=== PATIENT | female | born 1965 | race Caucasian/White ===

== ENCOUNTER 2019-12-16 12:48 | Outpatient (CLI) | payer OTHER, SELFPAY ==
[2019-12-16 13:12] LABS: Hematocrit 40.5 % (37.0-47.0); Hemoglobin 12.5 g/dL (12.0-15.0); Mean Corpuscular HGB Conc 30.9 g/dl (32-36); Mean Corpuscular Hemoglobin 26.7 pg (26-34); Mean Corpuscular Volume 86.5 fl (80-100); Mean Platelet Volume 10.2 fl (7.4-10.4); Platelet Count Result 360 k/mm3 (150-375); Red Blood Count 4.68 M/mm3 (4.2-5.4); Red Cell Distribution Width 15.2 % (11.5-14.5); White Blood Count 6.2 K/mm3 (4.5-10.0)
== END 2019-12-16 12:49 | disposition home or self-care (01) ==
LOC: ANHSURGERY 12:53
PROVIDERS: PCP Internal Medicine; Visit Provider Student in an Organized Health Care Education/Training Program
DX: N93.9 Abnormal uterine and vaginal bleeding, unspecified (principal)
CPT/HCPCS: 36415; 85027; 86850; 86900; 86901

== ENCOUNTER 2019-12-24 00:06 | Day surgery (SDC) | payer OTHER, SELFPAY ==
[2019-12-09 15:44] VITALS: BMI 33.2
[2019-12-24] VITALS (15 sets, daily range): BP systolic 111–151; BP diastolic 67–86; PULSE 54–81; RESP 10–16; TEMP 36–36.4; O2SAT 92–100
--- NOTE | 2019-12-24 07:43 | PM.IMHP ---
H&P: HPI History of Present Illness Chief complaint: Abnormal Uterine Bleeding/ Enlarged Uterus Narrative: Kylie Arreaga is a 54 year old female who presents for robotic assisted total laparoscopic hysterectomy with bilateral salpingo-oophorectomy for abnormal uterine bleeding. Pt initially presented to the office with complaints of abnormal uterine bleeding. She states she has dealt with AUB since 2010 and has undergone 3 D&Cs. Pelvic US showed a thickened endometrium. Endometrial biopsy was performed and was negative for malignancy or hyperplasia. Pt desires definitive managment via hysterectomy. Review of Systems Cardiovascular: Cardiovascular: Denies chest pain, Denies leg edema, Denies palpitations, Denies dyspnea and Denies dyspnea on exertion Respiratory: Respiratory: Denies cough, Denies dyspnea and Denies dyspnea on exertion Gastrointestinal: Gastrointestinal: Denies abdominal pain, Denies constipation, Denies diarrhea, Denies nausea and Denies vomiting Genitourinary: Genitourinary: Reports abnormal menses, Reports abnormal vaginal bleeding, Denies hematuria, Denies urinary frequency, Reports menorrhagia, Denies dysuria, Denies pelvic pain, Denies urinary incontinence and Denies vaginal discharge Neurologic: Reports system reviewed and no additional complaints, except as documented Psychiatric: Psychiatric: Reports no additional psychiatric complaints Endocrine: Endocrine: Denies palpitations PMFSH Past Medical History Medical History (Updated 12/24/19 @ 07:49 by Juan Stewart MD) Anxiety GERD (gastroesophageal reflux disease) Hyperlipidemia Hypertension Social History Social History (Updated 10/22/19 @ 07:48 by Chio Matthews MD) Smoking status: Never smoker Alcohol intake: current Drinks per week: 2 Substance use: never Substance use type: does not use Additional occupation/education comments: [employer] Gender identity (if verbalized by the patient): Female Meds Home Medications and Allergies Home Medications Medication Instructions Recorded Confirmed Type alprazolam 0.25 mg PO Q4-6H PRN 12/09/19 12/09/19 History cetirizine 10 mg PO DAILY 12/09/19 12/09/19 History cholecalciferol (vitamin D3) 10 mcg PO DAILY 12/09/19 12/09/19 History [Vitamin D3] escitalopram oxalate 10 mg PO DAILY 12/09/19 12/09/19 History irbesartan 150 mg PO DAILY 12/09/19 12/09/19 History metoprolol succinate 25 mg PO DAILY 12/09/19 12/09/19 History vitamin E 600 unit PO DAILY 12/09/19 12/09/19 History zolpidem [Ambien] 5 mg PO HS PRN 12/09/19 12/09/19 History Allergies Allergy/AdvReac Type Severity Reaction Status Date / Time erythromycin base Allergy Intermediate HIVES Verified 12/09/19 15:44 Sulfa (Sulfonamide Allergy Intermediate HIVES Verified 12/09/19 15:44 Antibiotics) Exam Const: General: no acute distress Eyes: EOM: EOMs intact bilaterally Neck: Neck: supple Thyroid: thyroid normal Chest: Breast/axilla inspection: normal inspection of the breasts Breast/axilla palpation: normal palpation of the breasts, normal palpation of the axillae and no axillary lymphadenopathy Resp: Effort & Inspection: normal respiratory effort Auscultation: clear to auscultation bilaterally Cardio: Rate: regular rate Rhythm: regular rhythm GI: Inspection: non-distended GI Palp: Yes Soft to palpation, No Tenderness to palpation present (GI) and No Guarding due to palpation present (GI) Auscultation: normal bowel sounds : General: No bladder normal to palpation External Female Exam: normal external appearance Speculum Exam - Vagina: normal vaginal discharge and No vaginal bleeding Speculum Exam - Cervix: nontender Bimanual exam- vagina & uterus: normal bimanual exam, uterine size normal, No bladder normal to palpation, uterine mobility normal, No Cervical tenderness present and non-tender Bimanual Exam- Adnexa, other: normal adnexae, adnexae mobile and no masses OB/external & speculum: No
[2019-12-24] MEDS: LACTATED RINGERS 1,000 ML 30 ML IV CONT ×2 (10:15→13:52)
--- NOTE | 2019-12-24 10:47 | P.PNAN_ITS ---
Anes - Initial Pre Proc Eval Procedure: Operation Date: 12/24/19 12:00 Proposed Procedures p Robotic Assisted Total Vaginal Hysterectomy, Bilateral Salpingo-Oophorectomy - Juan Stewart MD Date/Time: 12/24/19 10:47 Surgeon: Juan Stewart MD Pre Op Diagnosis: Abnormal Uterine Bleeding/ Enlarged Uterus Patient Data Age: 54 Gender: F Height: 5 ft Weight: 77.11 kg Last Vital Signs Temp 36.4 C L 12/24/19 10:05 Pulse 69 12/24/19 10:05 Resp 16 12/24/19 10:05 BP 151/86 H 12/24/19 10:05 Pulse Ox 100 12/24/19 10:05 Allergies Allergy/AdvReac Type Severity Reaction Status Date / Time erythromycin base Allergy Intermediate HIVES Verified 12/24/19 10:28 Sulfa (Sulfonamide Allergy Intermediate HIVES Verified 12/24/19 10:28 Antibiotics) Home Medications Medication Instructions Recorded Confirmed Type alprazolam 0.25 mg PO Q4-6H PRN 12/09/19 12/24/19 History cetirizine 10 mg PO DAILY 12/09/19 12/24/19 History cholecalciferol (vitamin D3) 10 mcg PO DAILY 12/09/19 12/24/19 History [Vitamin D3] escitalopram oxalate 10 mg PO DAILY 12/09/19 12/24/19 History irbesartan 150 mg PO DAILY 12/09/19 12/24/19 History metoprolol succinate 25 mg PO DAILY 12/09/19 12/24/19 History vitamin E 600 unit PO DAILY 12/09/19 12/24/19 History zolpidem [Ambien] 5 mg PO HS PRN 12/09/19 12/24/19 History Patient hx anesthesia problems: none and other (motion sickness) Family hx anesthesia problems: none PMFSH Past Medical History Medical History Anxiety GERD (gastroesophageal reflux disease) Hx of migraines Hyperlipidemia Hypertension Palpitations Social History Social History Smoking status: Never smoker Alcohol intake: current Drinks per week: 2 Substance use: never Substance use type: does not use Additional occupation/education comments: [employer] Gender identity (if verbalized by the patient): Female Igor - Trang Final PreProcedure Day of Procedure 12/24/19 10:47 Patient weight: obese Heart: regular rate and rhythm Lungs: clear to auscultation Airway: Mallampati scale class II Neurological: alert and oriented Last oral intake: >/= 8 hours ASA classification: III Emergent: no Anesthetic plan: proceed Anesthesia type and monitoring: general ETT and standard monitoring Informed Consent: The patient's anesthetic plan and its attendant risks and bene fits were discussed with the patient/family/POA. Questions were solicited and answers provided to the satisfaction of the patient/family/POA.
[2019-12-24] MEDS: SCOPOLAMINE 1.5 MG PATCH TRANSDERM (11:08)
[2019-12-24] MEDS: ceFAZolin 2 GM/D5W 50 ML 2 GM/50 ML BAG IVPB (12:14)
[2019-12-24] MEDS: LIDO 1%/EPINEPHRINE 1:100,000 20 ML VIAL INFILTRATE (13:02)
--- NOTE | 2019-12-24 14:09 | PM.PROC ---
Procedure Note - Detailed Date of procedure: 12/24/19 Pre-op diagnosis: Abnormal Uterine Bleeding/ Enlarged Uterus Procedure performed: Robotic assisted total laparoscopic hysterectomy bilateral salpingo-oophorectomy Description of procedure: PROCEDURE IN DETAIL: After the patient was appropriately consented she was taken to the operating room where she was transferred to the table in a dorsal supine position. General anesthesia was then induced with endotracheal intubation. The patient was transferred to a dorsal lithotomy position using adjustable yellow-fin stirrups. Her position was adjusted for appropriate support of her lower back and lower extremities. The patient was prepped and draped. A transurethral barnett catheter was place. The cervix was sequentially dilated and a MICHELLE uterine manipulator placed in typical fashion about a 3cm KARL ring. Gloves were changed. After confirmation of a functioning orogastric tube, lidocaine was injected at Hendrickson's point in the LUQ and a 5mm incision was made. A 5mm Optiview trocar was then inserted into the abdominal cavity under direct visualization and done so without complication. The abdomen was then insufflated with approximately 2-3L of CO2 establishing a pneumoperitoneum and the patient was placed in Trendelenburg position. Just above the umbilicus in the midline, a 10mm incision made after injection of lidocaine and a 10mm bladeless trocar advanced into the abdominal cavity under direct visualization without incident. We subsequently placed two robotic ports in a similar fashion, one in the left mid-quadrant and one in the right, 10cm lateral to the midline port. The robot was then docked. The Left round ligament was divided and the pararectal and paravesicle spaces developed, identifying the course of the ureter. The infundibulopelvic ligaments were skeletonized, triply coagulated and then transected with monopolar cade away from the course of the ureter. The posterior aspect of the broad ligament was then skeletonized down to the level of the internal cervical os, mobilizing the ureter laterally. The bladder flap was then created sharply. The ipsilateral uterine artery was skeletonized, bipolar cauterized and transected. A similar procedure was performed on the contralateral side, developing the pelvic spaces, coagulating and dividing the IP away from the ureter, completing the bladder flap, and skeletonizing, ligating, and dividing the uterine artery on this side. We ensured the vaginal pneumo-occluder balloon was insufflated and made a circumferential colpotomy using monopolar current. The uterus, cervix, bilateral tubes and ovaries were then delivered transvaginally. I then re-approximated the colpotomy with a single interuppted 0-vicryl at the left apex and running #1 PDS barbedl suture in 2 layers. Following this dissection, the abdomen and pelvis were copiously irrigated and all surgical sites found to be hemostatic. Skin sites were reapproximated with 4-0 Vicryl in a subcuticular fashion. Dermabond placed. The patient tolerated the procedure well. Sponge, needle and instrument counts were correct x 2 and the patient was taken to recovery in stable condition. Ancef was given for antimicrobial prophylaxis. The patient had SCD's on for VTE prophylaxis during the entire procedure. Anesthesia: GETA Surgeon: Juan Stewart MD Estimated blood loss (mL): 100 IV fluids (mL): 1,100 Urine output (mL): 300 Drains: No Packing: No Pathology: yes (uterus, cervix, bilateral fallopian tubes, bilateral ovaries ) Complications: No immediate complications Condition: stable Disposition: PACU Findings: Dense adhesions between the bladder and anterior uterus
[2019-12-24] MEDS: KETOROLAC 30 MG/ML VIAL (*BKC) IV PUSH (16:37)
[2019-12-24] MEDS: IBUPROFEN 600 MG TABLET PO (23:38)
[2019-12-25 05:17] LABS: Basophils Percent Auto 0.1 % (0.2-1.2); Hemoglobin 11.6 g/dL (12.0-15.0); Immature Granulocyte Absolute 0.06 K/mm3 (0.00-0.031); Immature Granulocyte Percent A 0.5 % (0-0.5); Lymphocytes Absolute Auto 1.34 K/mm3 (0.9-3.2); Lymphocytes Percent Auto 10.1 % (18.3-44.2); Mean Corpuscular HGB Conc 32.2 g/dl (32-36); Mean Corpuscular Hemoglobin 26.9 pg (26-34); Mean Corpuscular Volume 83.5 fl (80-100); Mean Platelet Volume 10.4 fl (7.4-10.4); Monocytes Absolute Auto 0.7 K/mm3 (0.1-0.6); Neutrophils Absolute Auto 11.2 K/mm3 (1.3-6.7); Neutrophils Percent Auto 84.3 % (45.5-73.1); Platelet Count Result 311 k/mm3 (150-375); Red Blood Count 4.31 M/mm3 (4.2-5.4); Red Cell Distribution Width 14.4 % (11.5-14.5); White Blood Count 13.3 K/mm3 (4.5-10.0)
[2019-12-25 05:42] LABS: Blood Urea Nitrogen 15 mg/dL (7-17); Calcium 8.5 mg/dL (8.4-10.2); Carbon Dioxide 25 mmol/L (22-30); Chloride 101 mmol/L (98-107); Estimated CRCL calculation 59 ml/min; Estimated Glomerular Filt Rate > 60; Glucose 122 mg/dL (65-105); Potassium 4.2 mmol/L (3.4-5.0); Sodium 133 mmol/L (137-145)
[2019-12-25 05:43] VITALS: BP 108/57; PULSE 74; RESP 16; TEMP 36.3; O2SAT 96
--- NOTE | 2019-12-25 07:19 | PM.DS ---
DS: Diagnosis Admitting Diagnosis Admitting Diagnosis: Abnormal uterine and vaginal bleeding, unspecified DS: Summary Hospital Course Hospital Course: Kylie Arreaga was admitted after robotic assisted total laparoscopic hysterectomy and bilateral salpingo-oophorectomy for abnormal uterine bleeding. The above procedure was performed with no complications. She is doing well post op. She states her pain is well controlled with PO medications. She reports minimal bleeding. She is ambulating up to the chair. Her barnett catheter was removed. She is tolerating PO without N/V. She reports passing flatus. Status at Discharge Overall status at discharge: patient is progressing back to baseline Time Spent with Patient Time attestation: Total time spent providing and/or coordinating discharge services: Time spent: Less than 30 minutes Exam Const: General: comfortable and no acute distress Limitations: no limitations Resp: Effort & Inspection: normal respiratory effort Auscultation: clear to auscultation bilaterally Cardio: Rate: regular rate Rhythm: regular rhythm GI: Inspection: non-distended GI Palp: Yes Soft to palpation, Yes Tenderness to palpation present (GI) (milder tenderness to deep palpation) and No Guarding due to palpation present (GI) Auscultation: normal bowel sounds Other: incisions C/D/I covered with dermabond Urinary Catheter: Urinary Catheter: urine clear Skin: General skin exam: normal color Extrem: General: normal to inspection Psych: Mental Status: mental status grossly normal Affect: normal affect DS: Data Data Completed and Pending Pending studies at discharge: Pending at discharge 12/24/19 13:19 Surgical [PTH] Routine Labs on day of discharge: Labs from last 24 hours 12/25/19 12/25/19 05:02 05:02 WBC 13.3 H RBC 4.31 Hgb 11.6 L Hct 36.0 L MCV 83.5 MCH 26.9 MCHC 32.2 RDW 14.4 Plt Count 311 MPV 10.4 Immature Gran % (Auto) 0.5 Neut % (Auto) 84.3 H Lymph % (Auto) 10.1 L [place] % (Auto) 5.0 Eos % (Auto) 0.0 Baso % (Auto) 0.1 L Lymph # (Auto) 1.34 [place] # (Auto) 0.7 H Eos # (Auto) 0.0 Baso # (Auto) 0.0 Abs Immat Gran (auto) 0.06 H Absolute Neuts (auto) 11.2 H Absolute Nucleated RBC 0.0 Nucleated RBC % 0.0 Sodium 133 L Potassium 4.2 Chloride 101 Carbon Dioxide 25 BUN 15 Creatinine 0.90 Estim Creat Clear Calc 59 Estimated GFR > 60 Glucose 122 H Calcium 8.5 Discharge Plan Discharge Patient Disposition: Home, Self-Care Discharge Instructions: call or return for temperature >100.4, bleeding >2 pads/hr for 2 hrs, pain not controlled with medications, signs/symptoms of infection Patient Instructions: Laparoscopic Hysterectomy (DC) Follow-up/Referrals: Juan Stewart MD [Physician] - 2 Weeks Discharge Medications: New hydrocodone-acetaminophen 5-325 mg Tablet 1 tab PO Q3H PRN (Reason: Pain Rated 5 Or Less) Qty: 30 RF: 0 docusate sodium 100 mg Capsule 100 mg PO BID Qty: 30 RF: 0 ibuprofen 600 mg Tablet 600 mg PO Q6H PRN (Reason: Cramping) Qty: 30 RF: 0 Continued cetirizine 10 mg Tablet 10 mg PO DAILY RF: 0 vitamin E 600 unit Capsule 600 unit PO DAILY RF: 0 alprazolam 0.5 mg tablet 0.25 mg PO Q4-6H PRN (Reason: Anxiety) RF: 0 zolpidem [Ambien] 5 mg Tablet 5 mg PO HS PRN (Reason: Anxiety) RF: 0 metoprolol succinate 25 mg tablet extended release 24 hr 25 mg PO DAILY RF: 0 irbesartan 150 mg tablet 150 mg PO DAILY RF: 0 cholecalciferol (vitamin D3) [Vitamin D3] 10 mcg (400 unit) Capsule 10 mcg PO DAILY RF: 0 escitalopram oxalate 10 mg tablet 10 mg PO DAILY RF: 0 Primary Care Provider: Santos,Dank Ann Attending physician on admission: Juan Stewart
--- NOTE | 2019-12-25 07:59 | P.PNAN_ITS ---
Anes - Prog Note Post-Op Date/Time: 12/25/19 07:59 Cardiovascular status: normal Respiratory status: normal Airway patency: baseline Mental status: baseline Post-Op hydration status: normal Vital Signs: Last Vital Signs Temp 36.3 C L 12/25/19 05:43 Pulse 74 12/25/19 05:43 Resp 16 12/25/19 05:43 BP 108/57 L 12/25/19 05:43 Pulse Ox 96 12/25/19 05:43 I/O: Intake & Output 12/24/19 12/24/19 12/25/19 15:59 23:59 07:59 Intake Total 950 240 500 Output Total 300 700 300 Balance 650 -460 200 Laboratory Tests 12/25/19 05:02 12/25/19 05:02 12/25/19 12/25/19 05:02 05:02 WBC 13.3 H RBC 4.31 Hgb 11.6 L Hct 36.0 L MCV 83.5 MCH 26.9 MCHC 32.2 RDW 14.4 Plt Count 311 MPV 10.4 Immature Gran % (Auto) 0.5 Neut % (Auto) 84.3 H Lymph % (Auto) 10.1 L [place] % (Auto) 5.0 Eos % (Auto) 0.0 Baso % (Auto) 0.1 L Lymph # (Auto) 1.34 [place] # (Auto) 0.7 H Eos # (Auto) 0.0 Baso # (Auto) 0.0 Abs Immat Gran (auto) 0.06 H Absolute Neuts (auto) 11.2 H Absolute Nucleated RBC 0.0 Nucleated RBC % 0.0 Sodium 133 L Potassium 4.2 Chloride 101 Carbon Dioxide 25 BUN 15 Creatinine 0.90 Estim Creat Clear Calc 59 Estimated GFR > 60 Glucose 122 H Calcium 8.5 Post-procedural complaints: none Patient Feedback: Patient satisfied with anesthetic care.
[2019-12-25 08:15] VITALS: BP 119/67; PULSE 61; RESP 16; TEMP 37.1; O2SAT 98
[2019-12-25] MEDS: LORATADINE 10 MG TABLET PO (08:41)
[2019-12-25] MEDS: CHOLECALCIFEROL 400 UNITS TABLET (VIT D) PO (08:41)
[2019-12-25] MEDS: DOCUSATE SODIUM 100 MG CAPSULE PO (08:41)
[2019-12-25] MEDS: ESCITALOPRAM OXALATE 10 MG TABLET PO (08:41)
[2019-12-25] MEDS: METOPROLOL SUCCINATE EXT REL 25 MG TABCR PO (08:42)
[2019-12-25] MEDS: IBUPROFEN 600 MG TABLET PO (08:42)
== END 2019-12-25 10:20 | disposition home or self-care (01) ==
LOC: ANHSURGERY 09:47 → ANHOB2 15:42
PROVIDERS: PCP Internal Medicine; Visit Provider Student in an Organized Health Care Education/Training Program
PROC: (CPT 58552; principal; 2019-12-24 12:00)
DX: N93.9 Abnormal uterine and vaginal bleeding, unspecified (principal); N84.0 Polyp of corpus uteri; N80.0 Endometriosis of uterus; I10 Essential (primary) hypertension; E78.5 Hyperlipidemia, unspecified; K21.9 Gastro-esophageal reflux disease without esophagitis; F41.8 Other specified anxiety disorders; E66.9 Obesity, unspecified; Z68.33 Body mass index [BMI] 33.0-33.9, adult
CPT/HCPCS: 58552; S2900; 36415; 80048; 85025; 88307; 99199; A9270; J0131; J0330; J0690; J1100; J1170; J1885; J2250; J2405; J2704; J2710; J3010; J7030; J7120

== ENCOUNTER 2021-09-15 10:26 | Emergency (ER) | payer OTHER, SELFPAY ==
[2021-09-15] VITALS (12 sets, daily range): BP systolic 124–170; BP diastolic 65–107; PULSE 59–99; RESP 16–18; TEMP 36.3–36.9; O2SAT 93–100
--- NOTE | ~2021-09-15 | XR_ITS ---
EXAMINATION: XR chest 2V EXAM DATE: 09/15/2021 16:22 INDICATION: Hypertension, reflux, hematochezia. Abdominal pain. TECHNIQUE: Frontal and lateral projections of the chest obtained and reviewed. Comparison is made to prior examination from 10/22/2019. FINDINGS: The lungs are clear. There are no pleural effusions. The cardiomediastinal silhouette is within normal limits. There is no pneumothorax suspected. The bones and soft tissues are unremarkab le. IMPRESSION: No acute cardiopulmonary findings. Reviewed, dictated and finalized at location B. ON BASTER
--- NOTE | ~2021-09-15 | CT_ITS ---
EXAMINATION: CT abdomen pelvis w con DATE: 09/15/2021 17:40 INDICATION: Abdominal pain. Blood in stool. Diarrhea. TECHNIQUE: Computed tomography (CT) of the abdomen and pelvis was performed with 100 mL Omnipaque 350 intravenous contrast. Automated exposure control and iterative reconstruction technique were employe d. The dose-length product was 568.14 mGy-cm. COMPARISON: CT abdomen and pelvis 10/22/2019 FINDINGS: The visualized portions of the lung bases demonstrate mild atelectasis. No pleural effusion . The heart size is normal. No pericardial effusion. There is an 8 mm cyst in the liver. The gallblad aydee, spleen, pancreas, adrenal glands, and kidneys are normal. There are no dilated loops of bowel. T he appendix is normal. There are no pathologically enlarged lymph nodes. There is no free intraperito brian fluid. There is mild thoracic spondylosis. IMPRESSION: 1. No etiology for the patient's symptoms. Reviewed, dictated and finalized at location A. NGER MACHINE TENDER
--- NOTE | 2021-09-15 14:04 | ECG_ITS ---
Measurements Intervals Hall Rate: 83 P: 15 NM: 133 QRS: 51 QRSD: 89 T: 43 QT: 397 QTc: 469 Interpretive Statements SINUS RHYTHM NORMAL ECG Electronically Signed On 09-15-2021 15:31:05 [employer] by Derian Albert D.O.
--- NOTE | 2021-09-15 14:04 | ED.ABDPAIN ---
HPI - Abdominal Pain General Chief Complaint: Abdominal Pain Stated Complaint: Abd Pain/Rectal Pain Time Seen by Provider: 09/15/21 12:51 Source: patient Mode of arrival: ambulatory Limitations: no limitations History of Present Illness HPI narrative: This is a 56-year-old female that presents to the emergency department for abdominal pain present over the last couple of days. Reports a crampy abdominal pain. Also reports a burning upper abdominal/chest pain. Reports mucus/bloody stools. Reports nausea. Denies vomiting, or dysuria. Related Data Home Medications Medication Instructions Recorded Confirmed alprazolam 0.25 mg PO Q4-6H PRN 12/09/19 12/24/19 cetirizine 10 mg PO DAILY 12/09/19 12/24/19 cholecalciferol (vitamin D3) 10 mcg PO DAILY 12/09/19 12/24/19 [Vitamin D3] escitalopram oxalate 10 mg PO DAILY 12/09/19 12/24/19 irbesartan 150 mg PO DAILY 12/09/19 12/24/19 metoprolol succinate 25 mg PO DAILY 12/09/19 12/24/19 vitamin E 600 unit PO DAILY 12/09/19 12/24/19 zolpidem [Ambien] 5 mg PO HS PRN 12/09/19 12/24/19 Allergies Allergy/AdvReac Type Severity Reaction Status Date / Time erythromycin base Allergy Intermediate HIVES Verified 12/24/19 10:28 Sulfa (Sulfonamide Allergy Intermediate HIVES Verified 12/24/19 10:28 Antibiotics) Review of Systems Review of Systems: CONSTITUTIONAL: Denies fever CARDIOVASCULAR: Denies chest/abdominal pain RESPIRATORY: Denies dyspnea. GASTROINTESTINAL: Reports abdominal pain, nausea, and diarrhea. Denies vomiting GENITOURINARY: Denies dysuria All systems reviewed & are unremarkable except as noted in HPI and below PMFSH Past Medical History Medical History (Updated 09/15/21 @ 18:37 by Cara Brown PA-C) Anxiety GERD (gastroesophageal reflux disease) Hx of migraines Hyperlipidemia Hypertension Palpitations Social History Social History Smoking status: Never smoker Alcohol intake: current Drinks per week: 2 Alcohol use details: Social Substance use: never Substance use type: does not use Additional occupation/education comments: Bottler Gender identity (if verbalized by the patient): Female Exam Narrative: GENERAL: Well-appearing, well-nourished, and in no acute distress. HEAD: Normocephalic, atraumatic. EYES: EOMI. CHEST: Clear to auscultation. No respiratory distress. No wheezes rales or rhonchi HEART: Regular rate and rhythm. No murmur heard. Normal peripheral pulses. ABDOMEN: Soft, nondistended, normal active bowel sounds. Tender to palpation throughout the abdomen, without guarding. No CVA tenderness EXTREMITIES: Normal range of motion. No edema. SKIN: Warm, dry, no rash. NEURO: No focal deficits. Alert and oriented x3. PSYCH: Normal mood and affect RECTAL: No active bleeding. Hemoccult positive Course Vital Signs Vital signs: Vital Signs Temperature 97.4 F L 09/15/21 10:40 Pulse Rate 99 09/15/21 10:40 Respiratory Rate 16 09/15/21 10:40 Blood Pressure 170/107 H 09/15/21 10:40 Pulse Oximetry 100 09/15/21 10:40 Temperature 98.4 F 09/15/21 12:32 Pulse Rate 96 09/15/21 18:38 Respiratory Rate 18 09/15/21 18:38 Blood Pressure 138/82 09/15/21 18:38 Pulse Oximetry 100 09/15/21 18:38 MDM - Abdominal Pain MDM Narrative Medical decision making narrative: Patient presents to the emergency department for crampy abdominal pain and blood in the stool. She is afebrile and nontoxic-appearing. Vitals are stable. CBC and metabolic panel without concerning findings. UA without evidence of infection. Lipase is normal. Chest x-ray without acute cardiopulmonary abnormality. EKG without concerning changes. CT scan of the abdomen and pelvis is without acute findings. Patient hydrated and given antiemetic and pain medication with improvement. There is no active bleeding on exam. She was Hemoccult positive. Her hemoglobin is stable at 11.8. Pat
[2021-09-15] MEDS: SODIUM CHLORIDE 0.9% IV 1,000 ML 999 ML IV CONT (14:32)
[2021-09-15] MEDS: MORPHINE SULFATE (*CRX) 2 MG/ML INJ IV PUSH (14:32)
[2021-09-15] MEDS: PANTOPRAZOLE SODIUM IV 40 MG VIAL IV PUSH (14:32)
[2021-09-15] MEDS: ONDANSETRON INJ 4 MG/2 ML VIAL IV PUSH (14:32)
[2021-09-15 14:47] LABS: Basophils Absolute Auto 0.1 K/mm3 (0.0-0.1); Basophils Percent Auto 1.2 % (0.2-1.2); Eosinophils Percent Auto 0.4 % (0-4.4); Hematocrit 35.6 % (37.0-47.0); Hemoglobin 11.8 g/dL (12.0-15.0); Immature Granulocyte Absolute 0.02 K/mm3 (0.00-0.031); Immature Granulocyte Percent A 0.3 % (0-0.5); Lymphocytes Absolute Auto 1.59 K/mm3 (0.9-3.2); Lymphocytes Percent Auto 20.9 % (18.3-44.2); Mean Corpuscular HGB Conc 33.1 g/dl (32-36); Mean Corpuscular Hemoglobin 29.4 pg (26-34); Mean Corpuscular Volume 88.8 fl (80-100); Mean Platelet Volume 9.9 fl (7.4-10.4); Monocytes Absolute Auto 0.3 K/mm3 (0.1-0.6); Monocytes Percent Auto 4.5 % (2.6-8.5); Neutrophils Absolute Auto 5.5 K/mm3 (1.3-6.7); Neutrophils Percent Auto 72.7 % (45.5-73.1); Platelet Count Result 281 k/mm3 (150-375); Red Blood Count 4.01 M/mm3 (4.2-5.4); Red Cell Distribution Width 13.2 % (11.5-14.5); White Blood Count 7.6 K/mm3 (4.5-10.0)
[2021-09-15 14:48] LABS: INR 1.2; Prothrombin Time 14.6 Seconds (11.1-14.7)
[2021-09-15 14:49] LABS: Partial Thromboplastin Time 34.2 SECONDS (22.3-36.8)
[2021-09-15 15:12] LABS: Add Urine Microscopic? YES; Appearance Urine Clear (Clear); Bilirubin Urine Negative (Negative); Blood Urine 2+ (Negative); Color Urine Yellow (Yellow); Glucose Urine UA Negative (Negative); Ketones Urine Negative (Negative); Leukocyte Esterase Ur Negative LEU/UL (Negative); Mucus Urine Rare /lpf; Nitrate Urine Negative (Negative); Protein Urine Negative (Negative); RBC Urine 51-75 /hpf (0-2); Specific Grav Ur 1.021 (1.001-1.035); Squamous Epithelial Cell Urine Few /hpf (Few); Urobilinogen Urine Negative mg/dL (<2.0); WBC Urine 0-3 /hpf
[2021-09-15 16:39] LABS: Alanine Aminotransferase 26 U/L (4-35); Albumin Level 4.6 g/dL (3.5-5.1); Alkaline Phosphatase 85 U/L (38-126); Anion Gap 10 mmol/L (8-16); Aspartate Amino Transferase 37 U/L (14-36); Bilirubin,Total 0.8 mg/dL (0.2-1.3); Blood Urea Nitrogen 18 mg/dL (7-17); Calcium 9.4 mg/dL (8.4-10.2); Carbon Dioxide 23 mmol/L (22-30); Chloride 105 mmol/L (98-107); Estimated CRCL calculation 68 ml/min; Estimated Glomerular Filt Rate > 60; Glucose 92 mg/dL (65-110); Lipase 78 U/L (23-300); Potassium 4.7 mmol/L (3.4-5.0); Sodium 138 mmol/L (137-145)
[2021-09-15] MEDS: diphenhydrAMINE HCl INJ 50 MG/ML VIAL 25 MG IV PUSH (18:34)
[2021-09-15] MEDS: METOCLOPRAMIDE HCL INJ 10 MG/2 ML VIAL IV PUSH (18:35)
== END 2021-09-15 19:05 | disposition home or self-care (01) ==
PROVIDERS: Physician Assistant; Emergency Provider Emergency Medicine; PCP Internal Medicine
DX: R10.9 Unspecified abdominal pain (principal); F41.9 Anxiety disorder, unspecified; K21.9 Gastro-esophageal reflux disease without esophagitis; E78.5 Hyperlipidemia, unspecified; I10 Essential (primary) hypertension; Z86.69 Personal history of other diseases of the nervous system and sense organs
CPT/HCPCS: 36415; 71046; 74177; 80053; 81001; 81025; 83690; 85025; 85610; 85730; 93005; 96361; 96374; 96375; 99284; C9113; J0131; J1200; J2270; J2405; J2765; J7030; Q9967

== ENCOUNTER → 2021-09-23 11:03 | Outpatient (CLI) | payer OTHER, SELFPAY ==
--- NOTE | ~2021-09-23 | MM_ITS ---
EXAMINATION: MM screening [facility] w [facility] HISTORY: Screening mammogram TECHNIQUE: Craniocaudal and mediolateral oblique 3-D tomosynthesis images were obtained and synthetic 2-D images were generated. CAD analysis was submitted and interpreted. COMPARISON: No prior mammogram is available for comparison at this institution. BREAST PARENCHYMAL COMPOSITION: There are scattered areas of fibroglandular density. FINDINGS: There are masses in the upper outer quadrants of both breasts. No suspicious calcification or architectural distortion is identified. IMPRESSION: 1. Bilateral breast masses which may represent the patient's baseline however no comparison is curren tly available. 2. Comparison with prior mammograms is necessary. BI-RADS Category 0: Incomplete: Needs comparison with prior mammograms. Reviewed, dictated and finalized at location A. OGRAPHIC PHOTOGRAPHER APPRENTICE IMPRESSION: 1. Bilateral breast masses which may represent the patient's baseline however n o comparison is currently available. 2. Comparison with prior mammograms is necessary. BI-RADS Category 0: Incomplete: Needs comparison with prior mammograms.
== END ==
PROVIDERS: PCP Internal Medicine; Visit Provider Student in an Organized Health Care Education/Training Program
DX: Z12.31 Encounter for screening mammogram for malignant neoplasm of breast (principal); R92.8 Other abnormal and inconclusive findings on diagnostic imaging of breast
CPT/HCPCS: 77063; 77067

== ENCOUNTER → 2023-04-29 14:03 | Outpatient (CLI) | payer OTHER, SELFPAY ==
--- NOTE | ~2023-04-29 | MM_ITS ---
EXAMINATION: MM screening [facility] BI w [facility] HISTORY: Screening TECHNIQUE: Craniocaudal and mediolateral oblique 3-D tomosynthesis images were obtained and synthetic 2-D images were generated. CAD analysis was submitted and interpreted. COMPARISON: Comparison to multiple prior studies sequentially, with oldest reviewed study dated 10/28. BREAST PARENCHYMAL COMPOSITION: Breast composed of scattered areas of fibroglandular density FINDINGS: There are bilateral breast masses which are diminished or resolved since prior examinations . No new masses or enlarging masses are identified. There is no evidence of suspicious mass, calcific ation, or architectural distortion to suggest malignancy in either breast. There has been no suspicio us interval change. IMPRESSION: 1. No mammographic evidence of malignancy. 2. Recommend routine screening mammography in one year. BI-RADS Category 2: Benign finding(s). Reviewed, dictated and finalized at location A.
== END ==
PROVIDERS: PCP Internal Medicine; Visit Provider Internal Medicine
DX: Z12.31 Encounter for screening mammogram for malignant neoplasm of breast (principal)
CPT/HCPCS: 77063; 77067

== ENCOUNTER 2025-03-11 15:20 | Outpatient (CLI) | payer OTHER, SELFPAY ==
--- NOTE | ~2025-03-11 | MM_ITS ---
EXAMINATION: MM screening [facility] w [facility] HISTORY: Screening TECHNIQUE: Craniocaudal and mediolateral oblique 3-D tomosynthesis images were obtained and synthetic 2-D images were generated. CAD analysis was submitted and interpreted. COMPARISON: Comparison to multiple prior studies sequentially, with oldest reviewed study dated 10/28. BREAST PARENCHYMAL COMPOSITION: Not dense: There are scattered areas of fibroglandular density. FINDINGS: There is no evidence of suspicious mass, calcification, or architectural distortion to sugg est malignancy in either breast. There has been no suspicious interval change. IMPRESSION: 1. No mammographic evidence of malignancy. 2. Recommend routine screening mammography in one year. BI-RADS Category 1: Negative Reviewed, dictated and finalized at location A.
== END 2025-03-11 15:21 | disposition home or self-care (01) ==
LOC: MICIMG 15:25
PROVIDERS: PCP Internal Medicine; Visit Provider Internal Medicine
DX: Z12.31 Encounter for screening mammogram for malignant neoplasm of breast (principal)
CPT/HCPCS: 77063; 77067